=== PATIENT | female | born 1955 | race American Indian/Alaskan Native ===

== ENCOUNTER 2017-08-18 16:10 | Emergency (ER) | payer MEDICAID, OTHER ==
[2017-08-18 16:42] VITALS: BP 122/90
[2017-08-18 17:37] LABS: CHLORIDE,CL 105 mmol/L (101-111); SODIUM,NA 138 mmol/L (135-145)
--- NOTE | 2017-08-18 18:00 | EDM.PDOC ---
Scribed by Esme Pereira 08/18/17 1800 for Rowdy Corley PA ED HPI GENERAL MEDICAL PROBLEM - General Chief Complaint: Chest Pain Stated Complaint: fall chest pain hard time breathing [id number] Time Seen by Provider: 08/18/17 16:30 Source of Information: Reports: Patient, RN, RN Notes Reviewed History Limitations: Reports: No Limitations - History of Present Illness INITIAL COMMENTS - FREE TEXT/NARRATIVE: Patient presents to ER stating that she fell one week ago. On Saturday she noted swelling in her anterior chest. She has had increased shortness of breath and pain with breathing. On Saturday she could not drive. Onset: Gradual Duration: Getting Worse Location: Reports: Chest Quality: Reports: Ache Severity: Severe Improves with: Reports: None Worsens with: Reports: None Associated Symptoms: Reports: No Other Symptoms Chest Pain Score (Numeric/FACES): 10 - Related Data Allergies Allergy/AdvReac Type Severity Reaction Status Date / Time No Known Allergies Allergy Verified 04/21/16 20:01 Home Meds: Home Meds FLUoxetine [PROzac] 10 mg PO DAILY 04/21/16 [History] Levothyroxine Sodium [Synthroid] 200 mcg PO DAILY 04/21/16 [History] Lisinopril 5 mg PO DAILY 04/21/16 [History] Methadone HCl 20 mg PO DAILY 04/21/16 [History] oxyCODONE 5 mg PO BID PRN 04/21/16 [History] Calcium Carbonate [Calcium] 500 mg PO DAILY 08/18/17 [History] Docusate Sodium [Stool Softener] 100 mg PO DAILY 08/18/17 [History] Multivitamin [One Daily Essential] 1 each PO DAILY 08/18/17 [History] Past Medical History HEENT History: Reports: Impaired Vision Cardiovascular History: Reports: Hypertension Musculoskeletal History: Reports: Other (See Below) Other Musculoskeletal History: sciatica pain Psychiatric History: Reports: Depression Endocrine/Metabolic History: Reports: Hypothyroidism - Past Surgical History Female Surgical History: Reports: Tubal Ligation Musculoskeletal Surgical History: Reports: Other (See Below) (right rotator cuff ) Social & Family History - Family History Family Medical History: Noncontributory - Tobacco Use Smoking Status *Q: Current Every Day Smoker Years of Tobacco use: 48 Packs/Tins Daily: 1 - Caffeine Use Caffeine Use: Reports: Soda - Alcohol Use Days Per Week of Alcohol Use: 7 Number of Drinks Per Day: 1 Total Drinks Per Week: 7 - Recreational Drug Use Recreational Drug Use: No ED ROS GENERAL - Review of Systems Review Of Systems: ROS reveals no pertinent complaints other than HPI. ED EXAM, GENERAL - Physical Exam Exam: See Below Exam Limited By: No Limitations General Appearance: Alert, WD/WN, No Apparent Distress Eye Exam: Bilateral Eye: Normal Inspection Ears: Normal External Exam, Normal Canal, Hearing Grossly Normal, Normal TMs Nose: Normal Inspection, Normal Mucosa, No Blood Throat/Mouth: Normal Inspection, Normal Lips, Normal Teeth, Normal Gums, Normal Oropharynx, Normal Voice, No Airway Compromise Head: Atraumatic, Normocephalic Neck: Normal Inspection, Supple, Non-Tender, Full Range of Motion Respiratory/Chest: Other (anterior chest wall pain and swelling. Lung sounds diminished due to decreased effort. ) Cardiovascular: Normal Peripheral Pulses, Regular Rate, Rhythm, No Edema, No Gallop, No JVD, No Murmur, No Rub GI/Abdominal: Normal Bowel Sounds, Soft, Non-Tender, No Organomegaly, No Distention, No Abnormal Bruit, No Mass (Female) Exam: Deferred Rectal (Female) Exam: Deferred Back Exam: Normal Inspection, Full Range of Motion, NT Extremities: Other (upper anterior tenderness to palpation. Swelling over area. ) Neurological: Alert, Oriented, CN II-XII Intact, Normal Cognition, Normal Gait, Normal Reflexes, No Motor/Sensory Deficits Psychiatric: Normal Affect, Normal Mood Skin Exam: Warm, Dry, Intact, Normal Color, No Rash Lymphatic: No Adenopathy Course - Vital Signs Last Recorded V/S: Last Vital Signs Temp 36.8 C 08/18/17 16:30 Pulse 97 08/18/17 16:30 Resp 13 08/18/17 16:30 BP 122/90 08/18/17 16:30 Pulse Ox 98 08/18/17 16:30 - Orders/Labs/Meds Orders: Active Orders 24 hr Category Date Time Status EKG Documentation Completion [RC] URGENT Care 08/18/17 16:48 Ordered Chest 2V [CR] Urgent Exams 08/18/17 16:48 Ordered Labs: Laboratory Tests 08/18/17 08/18/17 08/18/17 Range/Units 17:09 17:09 17:09 WBC 5.5 (5.0-10.0) 10^3/uL RBC 4.54 (4.2-5.4) 10^6/uL Hgb 12.7 (12.0-16.0) g/dL Hct 40.2 (37.0-47.0) % MCV 88.5 (80-100) fL MCH 28.0 (27.0-34.0) pg MCHC 31.6 L (33.0-35.0) g/dL Plt Count 220 (150-450) 10^3/uL Neut % (Auto) 55.6 (42.2-75.2) % Lymph % (Auto) 31.1 (20.5-50.1) % [place] % (Auto) 10.9 H (2-8) % Eos % (Auto) 2.0 (1.0-3.0) % Baso % (Auto) 0.4 (0.0-1.0) % PT 13.2 H (9.0-12.0) SEC INR 1.3 H (0.9-1.2) D-Dimer, Quantitative 263 (0-400) ng/mL Sodium 138 (135-145) mmol/L Potassium 4.0 (3.6-5.0) mmol/L Chloride 105 (101-111) mmol/L Carbon Dioxide 27.0 (21.0-31.0) mmol/L Anion Gap 10.0 BUN 17 (7-18) mg/dL Creatinine 0.7 (0.6-1.3) mg/dL Est Cr Clr Drug Dosing 73.80 mL/min Estimated GFR (MDRD) > 60 BUN/Creatinine Ratio 24.28 Glucose 99 (74-105) mg/dL Calcium 9.0 (8.4-10.2) mg/dl Total Bilirubin 0.5 (0.2-1.0) mg/dL AST 23 (10-42) IU/L ALT 19 (10-60) IU/L Alkaline Phosphatase 82 (42-121) IU/L Troponin I < 0.02 (0.00-0.02) ng/ml Total Protein 6.5 L (6.7-8.2) g/dl Albumin 3.7 (3.2-5.5) g/dl Globulin 2.8 Albumin/Globulin Ratio 1.32 Departure - Departure Time of Disposition: 17:57 Disposition: Home, Self-Care 01 Condition: Fair Clinical Impression: Chest wall contusion Qualifiers: Encounter type: initial encounter Laterality: unspecified laterality Qualified Code(s): S20.219A - Contusion of unspecified front wall of thorax, initial encounter Chest wall muscle strain Qualifiers: Encounter type: initial encounter Qualified Code(s): S29.011A - Strain of muscle and tendon of front wall of thorax, initial encounter Instructions: Muscle Strain, [id number], Chest Contusion, Adult Forms: ED Department Discharge Care Plan Goals: The patient was advised of the examination, EKG, lab and x-ray results during the visit. The patient was encouraged to continue with her current medications as prescribed. If the patient has any additional symptoms or concerns, the patient should visit her primary care facility or return to the emergency department. - My Orders Last 24 Hours: My Active Orders 08/18/17 16:48 EKG Documentation Completion [RC] URGENT Chest 2V [CR] Urgent - Assessment/Plan Last 24 Hours: My Active Orders 08/18/17 16:48 EKG Documentation Completion [RC] URGENT Chest 2V [CR] Urgent I have read and agree with the documentation that has been completed regarding this visit. By signing this record, I attest that the documentation was completed in my physical presence and is an accurate record of the encounter.
--- NOTE | 2017-08-20 07:50 | EKG ---
08/18/2017- DENNIS DHILLON - FINDINGS: EKG per my reading, shows sinus rhythm at the rate of 90. MODL /[id number]
== END 2017-08-18 18:09 | disposition home or self-care (01) ==
LOC: DL.ED 16:10
DX: S29.011A Strain of muscle and tendon of front wall of thorax, initial encounter (principal); S20.219A Contusion of unspecified front wall of thorax, initial encounter; I10 Essential (primary) hypertension; E03.9 Hypothyroidism, unspecified; F17.210 Nicotine dependence, cigarettes, uncomplicated; Z79.899 Other long term (current) drug therapy; W19.XXXA Unspecified fall, initial encounter
CPT/HCPCS: 36415; 71046; 80053; 84484; 85025; 85379; 85610; 93005; 99285

== ENCOUNTER 2018-08-27 05:42 | Day surgery (SDC) | payer MEDICAID, OTHER ==
[2018-08-27] MEDS ORDERED: fentaNYL 100 MCG/2 ML SDV IV ONE ×3 (05:43→06:28)
[2018-08-27] MEDS ORDERED: Midazolam 1 MG/ML 2 ML SDV IV ONE ×6 (05:43→06:39)
[2018-08-27] MEDS ORDERED: Sodium Chloride 0.9% 10 ML Syringe FLUSH PRN (06:00)
[2018-08-27] MEDS ORDERED: Dextrose 5%-0.45% NaCl 1,000 ML IV SCH (06:00)
[2018-08-27] MEDS ORDERED: Midazolam 1 MG/ML 2 ML SDV ONE (06:05)
[2018-08-27] MEDS ORDERED: fentaNYL 100 MCG/2 ML SDV ONE (06:05)
--- NOTE | 2018-08-27 09:15 | OR ---
DATE: 08/27/2018 PROCEDURE PERFORMED: Total colonoscopy, narrow-band imaging with magnification views, cold snare polypectomy, and multiple pinch biopsies. INSTRUMENT USED: PCF-H190DL Olympus video colonoscope. PREMEDICATIONS: Fentanyl 100 mcg intravenous, Versed 4 mg intravenous, nasal O2 cannula. The procedure was done under pulse oximetry, BP recording, and parts room assistant. INDICATION: The patient with Hemoccult positive stools. Colonoscopic examination is done for detection of any polypoid lesions and removal, endoscopic hemostasis therapy if needed. DESCRIPTION OF PROCEDURE: Initial rectal exam was unremarkable. Rigid anoscopy showed small hemorrhoids without bleeding from them. The colonoscope was passed with ease up to the ileocecal area. Photographs were taken of the cecum with prolapsing benign-appearing fold around the appendiceal orifice, coated with solid fecal material which could not be aspirated. Photographs including NBI view with magnification taken, numerous pinch biopsies were taken and sent for histopathology. No bleeding was noted from any of the visualized areas at the commencement of the examination. Bowel preparation adequate, [place] scale 3 in transverse colon and descending colon, [place] scale 2 in ascending colon. No stricture. No vascular ectasia. No large isolated ulcerations seen. No evidence of diffuse inflammatory bowel disease in the form of friability, contact bleeding, or ulcerations. In the proximal transverse colon, diminutive benign-appearing polyp was noted. Photographs were taken. Cold snare polypectomy was done, the tissue was retrieved and sent for histopathology. Probing the proximal sides of folds and flexures using adequate distention and clearing up the stool material, withdrawal of the scope was made. No bleeding was noted from any of the visualized areas at the completion of examination. IMPRESSION: Colonic polyp. The patient tolerated the procedure well. [facility] /[id number]
[2018-08-27 09:29] VITALS: BP 134/90
--- NOTE | 2018-08-27 13:09 | LETTER ---
08/27/2018 ALLI Olmedo [facility] [address] [place] [address] RE: JACQUIEDENNIS WESLEY : 1955 Dear Emir: Ms. Dennis Wise had colonoscopic examination done this morning and she tolerated the procedure well. I herewith send a copy of the endoscopy note and photographs for your review. Thank you. Sincerely, [facility] /[id number]
== END 2018-08-27 09:37 | disposition home or self-care (01) ==
LOC: DL.ENDO 05:42
PROVIDERS: ATTEND Internal Medicine Gastroenterology
DX: D12.3 Benign neoplasm of transverse colon (principal); K63.5 Polyp of colon; I10 Essential (primary) hypertension; E78.5 Hyperlipidemia, unspecified; F17.210 Nicotine dependence, cigarettes, uncomplicated; F32.9 Major depressive disorder, single episode, unspecified; M81.0 Age-related osteoporosis without current pathological fracture; M19.90 Unspecified osteoarthritis, unspecified site; E66.09 Other obesity due to excess calories; Z68.30 Body mass index [BMI] 30.0-30.9, adult
CPT/HCPCS: 45380; 45385; J2250; J3010; J7042

== ENCOUNTER 2019-01-14 21:14 | Emergency (ER) | payer MEDICARE, MEDICAID ==
[2019-01-14 23:08] VITALS: BP 145/84; PULSE 86
[2019-01-14] MEDS ORDERED: Acetaminophen/HYDROcodone 325-10 MG Tab PO ONE (23:10)
--- NOTE | 2019-01-14 23:16 | EDM.PDOC ---
ED HPI GENERAL MEDICAL PROBLEM - General Chief Complaint: Upper Extremity Injury/Pain Stated Complaint: FALL/WRIST PAIN Time Seen by Provider: 01/14/19 23:15 Source of Information: Reports: Patient History Limitations: Reports: No Limitations - History of Present Illness INITIAL COMMENTS - FREE TEXT/NARRATIVE: tripped over case of water fell back, hit head, landed on right wrist NO loss of consciousness, no neck pain. Bruise left upper arm. Pain to right wrist No other injury Right Wrist Pain Score (Numeric/FACES): 10 - Related Data Allergies Allergy/AdvReac Type Severity Reaction Status Date / Time No Known Allergies Allergy Verified 01/14/19 22:36 Home Meds: Home Meds FLUoxetine [PROzac] 10 mg PO DAILY 04/21/16 [History] Levothyroxine Sodium [Synthroid] 200 mcg PO DAILY 04/21/16 [History] Lisinopril 5 mg PO DAILY 04/21/16 [History] oxyCODONE 5 mg PO BID PRN 04/21/16 [History] Calcium Carbonate [Calcium] 500 mg PO DAILY 08/18/17 [History] Docusate Sodium [Stool Softener] 100 mg PO DAILY 08/18/17 [History] Multivitamin [One Daily Essential] 1 each PO DAILY 08/18/17 [History] Past Medical History HEENT History: Reports: Impaired Vision Cardiovascular History: Reports: Hypertension Musculoskeletal History: Reports: Other (See Below) Other Musculoskeletal History: sciatica pain Psychiatric History: Reports: Depression Endocrine/Metabolic History: Reports: Hypothyroidism - Past Surgical History Female Surgical History: Reports: Tubal Ligation Musculoskeletal Surgical History: Reports: Other (See Below) Social & Family History - Family History Family Medical History: Noncontributory - Tobacco Use Smoking Status *Q: Current Every Day Smoker Years of Tobacco use: 49 Packs/Tins Daily: 0.5 Used Tobacco, but Quit: No Second Hand Smoke Exposure: Yes - Caffeine Use Caffeine Use: Reports: Soda - Recreational Drug Use Recreational Drug Use: No Review of Systems - Review of Systems Review Of Systems: ROS reveals no pertinent complaints other than HPI. ED EXAM, GENERAL - Physical Exam Exam: See Below Exam Limited By: No Limitations General Appearance: Alert, Mild Distress Eye Exam: Bilateral Eye: EOMI Ears: Normal External Exam, Hearing Grossly Normal Nose: Normal Inspection Throat/Mouth: Normal Inspection Head: Normocephalic, Other (mild tenderness right occipital) Neck: Normal Inspection, Non-Tender. No: Tender Lateral, Tender Midline Respiratory/Chest: No Respiratory Distress, Lungs Clear, Normal Breath Sounds Cardiovascular: Normal Peripheral Pulses, Regular Rate, Rhythm GI/Abdominal: Normal Bowel Sounds, Soft Back Exam: Full Range of Motion. No: Vertebral Tenderness Extremities: Normal Capillary Refill, Joint Swelling (right wrist, greater over radius, no gross deformity.), Limited Range of Motion Neurological: Alert, Oriented, Normal Cognition, Normal Gait Psychiatric: Normal Affect, Tearful Skin Exam: Warm, Dry, Intact ED TRAUMA EXTREMITY PROCEDURES - Splinting Right Upper Extremity Splint Site: right upper extremity Pre-Procedure NV Status: Normal Post-Procedure NV Status: Normal Splint Material: Fiberglass Splint Design: Posterior, Sling Applied & Form Fitted By: Provider Provider Post-Splint Application NV Check: NV Status Normal Complications: No Course - Vital Signs Last Recorded V/S: Last Vital Signs Temp 98.4 F 01/14/19 23:05 Pulse 86 01/14/19 23:05 Resp 18 01/14/19 23:05 BP 145/84 H 01/14/19 23:05 Pulse Ox 98 01/14/19 23:05 - Orders/Labs/Meds Meds: Medications Discontinued Medications Generic Name Dose Route Start Last Admin Trade Name Immanuelq PRN Reason Stop Dose Admin Hydrocodone Bitart/Acetaminophen 1 tab 01/14/19 23:10 01/14/19 23:18 [place] 325-10 Mg PO 01/14/19 23:11 1 tab ONETIME ONE Administration - Radiology Interpretation Free Text/Narrative:: fx distal radius see report Departure - Departure Time of Disposition: 23:12 Disposition: Home, Self-Care 01 Condition: Good Clinical Impression: Fracture of radius Qualifiers: Encounter type: initial encounter Radius location: distal Fracture type: closed Fracture morphology: unspecified fracture morphology Laterality: right Qualified Code(s): S52.501A - Unspecified fracture of the lower end of right radius, initial encounter for closed fracture - Discharge Information *PRESCRIPTION DRUG MONITORING PROGRAM REVIEWED*: Not Applicable *COPY OF PRESCRIPTION DRUG MONITORING REPORT IN PATIENT SAVANNAH: Not Applicable Instructions: Wrist Fracture Treated With Immobilization, [id number] Referrals: Gaby Javier MD [Primary Care Provider] - Forms: ED Department Discharge Additional Instructions: Splint elevate extremity ice follow up with Ortho specialist [phone] call to schedule appointment
== END 2019-01-14 23:22 | disposition home or self-care (01) ==
LOC: DL.ED 21:14
DX: S52.591A Other fractures of lower end of right radius, initial encounter for closed fracture (principal); I10 Essential (primary) hypertension; F32.9 Major depressive disorder, single episode, unspecified; E03.9 Hypothyroidism, unspecified; F17.210 Nicotine dependence, cigarettes, uncomplicated; Z79.899 Other long term (current) drug therapy; W01.198A Fall on same level from slipping, tripping and stumbling with subsequent striking against other object, initial encounter
CPT/HCPCS: 29125; 73110; 99283; A9270

== ENCOUNTER 2019-03-09 22:08 | Emergency (ER) | payer MEDICARE, MEDICAID ==
[2019-03-10 00:20] VITALS: BP 131/90; PULSE 105
[2019-03-10] MEDS ORDERED: Acetaminophen 500 MG Tab PO ONE (00:46)
--- NOTE | 2019-03-10 01:08 | EDM.PDOC ---
ED HPI GENERAL MEDICAL PROBLEM - General Chief Complaint: Upper Extremity Injury/Pain Stated Complaint: RT WRIST PAIN Time Seen by Provider: 03/09/19 23:00 Source of Information: Reports: Patient History Limitations: Reports: No Limitations - History of Present Illness INITIAL COMMENTS - FREE TEXT/NARRATIVE: ED wiht c/o pain to right wrist, Fell agin on stairs landing outstretched, no other injury. Recent fracture in December to same wrist. Right Wrist Pain Score (Numeric/FACES): 9 - Related Data Allergies Allergy/AdvReac Type Severity Reaction Status Date / Time No Known Allergies Allergy Verified 01/14/19 22:36 Home Meds: Home Meds FLUoxetine [PROzac] 10 mg PO DAILY 04/21/16 [History] Levothyroxine Sodium [Synthroid] 200 mcg PO DAILY 04/21/16 [History] Lisinopril 5 mg PO DAILY 04/21/16 [History] oxyCODONE 5 mg PO BID PRN 04/21/16 [History] Calcium Carbonate [Calcium] 500 mg PO DAILY 08/18/17 [History] Docusate Sodium [Stool Softener] 100 mg PO DAILY 08/18/17 [History] Multivitamin [One Daily Essential] 1 each PO DAILY 08/18/17 [History] Past Medical History HEENT History: Reports: Impaired Vision Cardiovascular History: Reports: Hypertension Musculoskeletal History: Reports: Fracture, Other (See Below) Other Musculoskeletal History: sciatica pain Psychiatric History: Reports: Depression Endocrine/Metabolic History: Reports: Hypothyroidism - Past Surgical History Female Surgical History: Reports: Tubal Ligation Musculoskeletal Surgical History: Reports: Other (See Below) Social & Family History - Family History Family Medical History: Noncontributory - Tobacco Use Smoking Status *Q: Current Every Day Smoker Years of Tobacco use: 42 Packs/Tins Daily: 0.3 Second Hand Smoke Exposure: Yes - Caffeine Use Caffeine Use: Reports: Soda - Recreational Drug Use Recreational Drug Use: No Review of Systems - Review of Systems Review Of Systems: Comprehensive ROS is negative, except as noted in HPI. ED EXAM, GENERAL - Physical Exam Exam: See Below Exam Limited By: No Limitations General Appearance: Alert, Anxious (Twitchy, exageggerated movements, darting eyes) Eye Exam: Bilateral Eye: EOMI, PERRL (5) Ears: Normal External Exam Throat/Mouth: Normal Inspection Head: Atraumatic, Normocephalic Neck: Normal Inspection, Full Range of Motion Respiratory/Chest: No Respiratory Distress, Lungs Clear, Normal Breath Sounds Cardiovascular: Normal Peripheral Pulses Back Exam: Full Range of Motion Extremities: Limited Range of Motion (right wrist, swellign) Neurological: Alert, Oriented, Normal Cognition Psychiatric: Anxious Skin Exam: Warm, Dry, Intact, Normal Color ED TRAUMA EXTREMITY PROCEDURES - Splinting Right Upper Extremity Pre-Procedure NV Status: Normal Post-Procedure NV Status: Normal Splint Material: Aluminum-Foam Splint Design: Posterior, Sling Applied & Form Fitted By: Provider Provider Post-Splint Application NV Check: NV Status Normal Course - Vital Signs Last Recorded V/S: Last Vital Signs Temp 97.9 F 03/10/19 00:20 Pulse 105 H 03/10/19 00:20 Resp 20 03/10/19 00:20 BP 131/90 03/10/19 00:20 Pulse Ox 99 03/10/19 00:20 - Orders/Labs/Meds Meds: Medications Discontinued Medications Generic Name Dose Route Start Last Admin Trade Name Amber PRN Reason Stop Dose Admin Acetaminophen 500 mg 03/10/19 00:46 03/10/19 00:59 Tylenol Extra Strength PO 03/10/19 00:47 500 mg ONETIME ONE Administration - Radiology Interpretation Free Text/Narrative:: fx radius Departure - Departure Time of Disposition: 00:54 Disposition: Home, Self-Care 01 Condition: Good Clinical Impression: Traumatic closed fx of distal end of radius with minimal displacement Qualifiers: Encounter type: initial encounter Laterality: right Qualified Code(s): S52.501A - Unspecified fracture of the lower end of right radius, initial encounter for closed fracture - Discharge Information *PRESCRIPTION DRUG MONITORING PROGRAM REVIEWED*: No *COPY OF PRESCRIPTION DRUG MONITORING REPORT IN PATIENT SAVANNAH: No Instructions: Metacarpal Fracture, [id number] Forms: ED Department Discharge Additional Instructions: Wrist splint elevate ice splint follow up with ortho specialist in morning call to be seen prior to moving tylenol 650mg every 4 hours as needed for discomfort Sepsis Event Note - Focused Exam Date Exam was Performed: 03/11/19 Time Exam was Performed: 04:14
== END 2019-03-10 01:06 | disposition home or self-care (01) ==
LOC: DL.ED 22:08
DX: S52.551A Other extraarticular fracture of lower end of right radius, initial encounter for closed fracture (principal); I10 Essential (primary) hypertension; F32.9 Major depressive disorder, single episode, unspecified; E03.9 Hypothyroidism, unspecified; F17.210 Nicotine dependence, cigarettes, uncomplicated; W10.9XXA Fall (on) (from) unspecified stairs and steps, initial encounter
CPT/HCPCS: 73110; 99283; A9270; 99284

== ENCOUNTER 2019-03-14 12:55 | Emergency (ER) | payer MEDICARE, MEDICAID ==
[2019-03-14 13:08] VITALS: BP 119/46; PULSE 110
[2019-03-14] MEDS ORDERED: Acetaminophen 325 MG Tab PO ONE (14:50)
--- NOTE | 2019-03-14 20:17 | EDM.PDOC ---
Scribed by Esme Pereira 03/14/19 1535 for Darby Aponte NP ED HPI GENERAL MEDICAL PROBLEM - General Chief Complaint: Upper Extremity Injury/Pain Stated Complaint: WRIST PAIN Time Seen by Provider: 03/14/19 14:20 Source of Information: Reports: Patient, RN, RN Notes Reviewed History Limitations: Reports: No Limitations - History of Present Illness INITIAL COMMENTS - FREE TEXT/NARRATIVE: Patient presents to ER with pain in increased pain right wrist after falling for the third time. On January 14 she had a fractured right distal radius. Had admitted she took her own splint off and was seen by ortho and was told " she did not need a splint anymore". She also refused surgery and ortho said she needed to heal without surgery. Her cast is off and today she fell again; presents with deformity of right wrist and mild edema; increased pain. When asked why she was falling so much she said most likely due to the Flexeril and gabapentin she is taking. No numbness or tingling; she is able to open and close her palm. Right Wrist Pain Score (Numeric/FACES): 10 - Related Data Allergies Allergy/AdvReac Type Severity Reaction Status Date / Time No Known Allergies Allergy Verified 03/14/19 13:03 Home Meds: Home Meds FLUoxetine [PROzac] 10 mg PO DAILY 04/21/16 [History] Levothyroxine Sodium [Synthroid] 200 mcg PO DAILY 04/21/16 [History] Lisinopril 5 mg PO DAILY 04/21/16 [History] oxyCODONE 5 mg PO BID PRN 04/21/16 [History] Calcium Carbonate [Calcium] 500 mg PO DAILY 08/18/17 [History] Docusate Sodium [Stool Softener] 100 mg PO DAILY 08/18/17 [History] Multivitamin [One Daily Essential] 1 each PO DAILY 08/18/17 [History] Past Medical History HEENT History: Reports: Impaired Vision Cardiovascular History: Reports: Hypertension Musculoskeletal History: Reports: Fracture, Other (See Below) Other Musculoskeletal History: sciatica pain Psychiatric History: Reports: Depression Endocrine/Metabolic History: Reports: Hypothyroidism - Past Surgical History Female Surgical History: Reports: Tubal Ligation Musculoskeletal Surgical History: Reports: Other (See Below) Social & Family History - Family History Family Medical History: Noncontributory - Tobacco Use Smoking Status *Q: Current Every Day Smoker Years of Tobacco use: 40 Packs/Tins Daily: 0.5 - Caffeine Use Caffeine Use: Reports: Soda - Recreational Drug Use Recreational Drug Use: No Review of Systems - Review of Systems Review Of Systems: Comprehensive ROS is negative, except as noted in HPI. ED EXAM, GENERAL - Physical Exam Exam: See Below General Appearance: Alert, WD/WN, No Apparent Distress Head: Atraumatic, Normocephalic Neck: Normal Inspection, Supple, Non-Tender, Full Range of Motion Respiratory/Chest: No Respiratory Distress, Lungs Clear, Normal Breath Sounds, No Accessory Muscle Use, Chest Non-Tender Cardiovascular: Normal Peripheral Pulses, Regular Rate, Rhythm, No Edema, No Gallop, No JVD, No Murmur, No Rub Peripheral Pulses: 2+: Radial (L), Radial (R) Back Exam: Normal Inspection, Full Range of Motion, NT Extremities: Normal Capillary Refill, Other (right wrist with lateral deformity ; mild edema. Painful to move. Able to open and close palm okay. Elbow fROM wihtout discomfort. ) Neurological: Alert, Oriented, CN II-XII Intact, Normal Cognition, Normal Gait, Normal Reflexes, No Motor/Sensory Deficits Psychiatric: Other (Does appear to be "tweaking". Vebalizes non-compliance with prevoius splint. ) Skin Exam: Warm, Dry, Intact, Normal Color, No Rash Course - Vital Signs Last Recorded V/S: Last Vital Signs Temp 36.2 C 03/14/19 13:07 Pulse 110 H 03/14/19 13:07 Resp 18 03/14/19 13:07 BP 119/46 L 03/14/19 13:07 Pulse Ox 95 03/14/19 13:07 - Orders/Labs/Meds Orders: Active Orders 24 hr Category Date Time Status Splinting [RC] ASDIRECTED Care 03/14/19 14:51 Active Meds: Medications Discontinued Medications Generic Name Dose Route Start Last Admin Trade Name Freq PRN Reason Stop Dose Admin Acetaminophen 650 mg 03/14/19 14:50 03/14/19 14:54 Tylenol PO 03/14/19 14:51 650 mg NOW ONE Administration - Radiology Interpretation Free Text/Narrative:: X-ray right wrist: Comminuted extra-articular dorsally angulated fracture of the distal right radial metaphysis with some evidence of bony bridging, not appreciably changed. Moderate soft tissue swelling projects over the distal right forearm, mildly increased. Moderate unchanged osteoarthritis of the right base of thumb carpometacarpal joint space. See rad report. - Re-Assessments/Exams Free Text/Narrative Re-Assessment/Exam: Comminuted extra-articular dorsally angulated fracture of the distal right radial metaphysis with some evidence of bony bridging, not appreciably changed from her original last xray on 01/14/19. She has not been compliant with ortho and refused surgery. She was placed in a splint again 03/09/19 and removed it. My concerns are her non-compliance and receiving pain meds; she has fallen 3 times; fracture right wrist; no knew fractures but fracture not healing as she wont wear a brace or cast. I did ask her not to use her gabapentin and Flexeril anymore due to multiple falls. She was obviously tweaking in the ER and most likely not be compliant. In effort protect her fracture and possible heal; I placed a pre-bibi thumb spica splint. And given tylenol for pain. Instructed on ice and elevation and most important follow up with her Orthopedic or PCP. 03/14/19 20:06 03/14/19 20:09 Departure - Departure Time of Disposition: 14:52 Disposition: Home, Self-Care 01 Condition: Good Clinical Impression: Closed fracture of radius Qualifiers: Encounter type: initial encounter Radius location: distal Laterality: right - Discharge Information Instructions: Forearm Fracture, [id number] Referrals: PCP,None [Primary Care Provider] - Forms: ED Department Discharge Additional Instructions: Use Ice, Tylenol q 4-6 hours (limit 4000mg in 24 hours), motrin 400mg q 6 hours. Follow up with your orthopedic and let them know you have fallen again and new splint applied. STOP TAKING GABAPENTIN AND FLEXERIL DUE TO FALLS. Sepsis Event Note - Evaluation Sepsis Screening Result: No Definite Risk - Focused Exam Vital Signs: Vital Signs Temp Pulse Resp BP Pulse Ox 03/14/19 13:07 36.2 C 110 H 18 119/46 L 95 Date Exam was Performed: 03/14/19 Time Exam was Performed: 19:55 - My Orders Last 24 Hours: My Active Orders 03/14/19 14:51 Splinting [RC] ASDIRECTED - Assessment/Plan Last 24 Hours: My Active Orders 03/14/19 14:51 Splinting [RC] ASDIRECTED I have read and agree with the documentation that has been completed regarding this visit. By signing this record, I attest that the documentation was completed in my physical presence and is an accurate record of the encounter.
== END 2019-03-14 15:00 | disposition home or self-care (01) ==
LOC: DL.ED 12:55
DX: S52.501A Unspecified fracture of the lower end of right radius, initial encounter for closed fracture (principal); I10 Essential (primary) hypertension; E03.9 Hypothyroidism, unspecified; Z91.19 Patient's noncompliance with other medical treatment and regimen; Z79.890 Hormone replacement therapy; Z79.899 Other long term (current) drug therapy; W19.XXXA Unspecified fall, initial encounter
CPT/HCPCS: 73110; 99283; A9270